=== PATIENT | female | born 1965 | race Caucasian/White ===

== ENCOUNTER 2019-01-08 12:37 | Emergency (ER) | payer OTHER, SELFPAY ==
--- NOTE | 2019-01-08 12:42 | W.ED.GENAD ---
Discharge Plan Disposition Patient Disposition: HOME Condition: Good Discharge Details Chief Complaint: GenMedical Clinical Impression: Sinusitis Primary Care Provider: Arabella Hernandez ED Provider: Janneth Pruett Home Meds and New Rx's Prescriptions: New amoxicillin-pot clavulanate [Augmentin] 875-125 mg tablet 1 tab PO BID Qty: 14 RF: 0 Continued omega-3 fatty acids 1,000 MG capsule 1,000 mg PO EVERY OTHER DAY RF: 0 ascorbic acid (vitamin C) 500 MG tablet 500 mg PO EVERY OTHER DAY RF: 0 vitamin E mixed 400 UNIT tablet 400 unit PO EVERY OTHER DAY RF: 0 CALCIUM 600 + D TABLET 1 EACH tablet 1 ea PO EVERY OTHER DAY RF: 0 benzonatate [Tessalon Perles] 100 MG capsule 100 - 200 mg PO tid prn Qty: 30 RF: 0 Discharge Instructions Instructions: Sinusitis (ED) Additional Instructions: Encourage hydration. Tylenol and ibuprofen as needed for discomfort. Please take the Augmentin as prescribed for sinus infection. Please follow-up with primary care if not improving in 1 week. If you develop difficulty breathing or shortness of breath or other new/worsening symptoms please seek care urgently once again. Referrals: Arabella Hernandez, [employer] [Primary Care Provider] - Discharge Data Discharge Date/Time-TO BE ENTERED AT DEPARTURE: 01/08/19 13:08 Medical Decision Making Patient is a 53-year-old female with out significant past medical history presented with chief complaint of URI. She reports that symptoms have been over the past 2 weeks. Reports that maximal tenderness is in the left maxillary sinus. Has not had any fevers. On exam, she appears nontoxic. She does have pain with percussion of the left maxillary sinus. Lungs are clear. Normal posterior oropharynx. No palpable lymphadenopathy. Please feel the treatment is appropriate with antibiotics we will begin her on Augmentin. She was given return precautions. Advise follow-up with primary care in the next week if not improving. All of her questions and concerns were addressed she is in agreement this plan. HPI General Mode of arrival: ambulatory. Date/Time Provider Initiated Documentation: 01/08/19 12:42. Limitations to Documentation: no limitations. Information obtained by: patient and RN notes reviewed. HPI Narrative: Patient is a 53-year-old female presents today with chief complaint of URI x2 weeks. Reports that she has had waxing and waning symptoms of cough and sore throat. However, throughout the whole thing she has been having a left maxillary sinus pain. She denies any fevers or chills. Denies any recent travel. No recent antibiotics. Denies shortness of breath. Related Data Home Medications Medication Instructions Recorded Confirmed Calcium 600 + D Tablet 1 ea PO EVERY OTHER DAY 07/02/13 ascorbic acid (vitamin C) 500 mg PO EVERY OTHER DAY 07/02/13 omega-3 fatty acids 1,000 mg PO EVERY OTHER DAY 07/02/13 vitamin E mixed 400 unit PO EVERY OTHER DAY 07/02/13 benzonatate [Tessalon Perles] 100 - 200 mg PO tid prn #30 tab-cap 06/28/16 amoxicillin-pot clavulanate 1 tab PO BID #14 tab 01/08/19 [Augmentin] Previous Rx's Medication Instructions Recorded amoxicillin-pot clavulanate 1 tab PO BID #14 tab 01/08/19 [Augmentin] Allergies Allergy/AdvReac Type Severity Reaction Status Date / Time Tetracyclines Allergy Unknown Unverified 06/28/16 13:01 Review of Systems Constitutional Constitutional: Reports as per HPI, Denies chills, Denies fever(s) and Denies headache(s) Eyes Eyes: Reports as per HPI, Denies eye discharge and Denies irritation ENT Ears, Nose, Mouth, and Throat: Reports as per HPI and Denies headache(s) Cardiovascular Cardiovascular: Reports as per HPI, Denies chest pain, Denies dyspnea and Denies dyspnea on exertion Respiratory Respiratory: Reports as per HPI, Reports chest congestion, Reports cough, Denies hemoptysis, Denies excessive phlegm production, Denies pain on inspiration, Denies pain with cough, Denies dyspnea, Denies dyspnea on exertion, Denies stridor and Denies wheezing Gastrointestinal Gastrointestinal: Reports as per HPI, Denies abdominal pain, Denies change in bowel habits, Denies nausea and Denies vomiting Integumentary/Breasts Skin/Breast: Reports as per HPI and Denies rash Neurologic Neurologic: Reports as per HPI and Denies headache(s) Allergic/Immunologic Allergic/Immunologic: Denies wheezing [facility] Social History Smoking/Tobacco Use Status: Former Tobacco Use Alcohol Intake: current Alcohol Intake frequency: a few times a week Alcohol type: wine Drug use: Never Substance use type: does not use Do you feel safe at home: Yes Do you feel safe in your relationship?: Yes Exam Const General: cooperative, healthy appearing, comfortable, no acute distress, well developed and well groomed Nutritional Appearance: average body habitus and well nourished Orientation: alert and awake [facility] Head: normal to inspection, normocephalic and atraumatic Ears: hearing grossly normal bilaterally, external ears normal and TM's normal bilaterally General nose exam: external nose normal and nares normal Face and sinus: normal facial exam, face symmetric and sinus tenderness maxillary (left) Mouth: oral mucosae normal, lip normal, tongue normal, oropharynx normal and moist mucous membranes Teeth and gingiva: dentition normal Throat: posterior oropharynx normal, tonsils normal and uvula midline Eyes General: appearance normal, both eyes and all related structures Neck Neck: normal visual inspection, full ROM, no lymphadenopathy and no meningeal signs Resp Effort & Inspection: normal respiratory effort, able to speak in complete sentences and no respiratory distress Auscultation: clear to auscultation bilaterally, no rales, no rhonchi and no wheezes Cardio Rate: regular rate Rhythm: regular rhythm Heart Sounds: S1 normal and S2 normal Skin General skin exam: no rashes or lesions noted Neuro General: alert and awake Cognition: normal cognition Speech: speech normal Gait: normal gait Psych Appearance: grossly normal and well kempt Mental Status: mental status grossly normal Speech and Movement: speech and movement normal
[2019-01-08 12:44] VITALS: BP 137/75; PULSE 71; RESP 18; TEMP 35.9; O2SAT 99
[2019-01-08 12:49] VITALS: RESP 18
== END 2019-01-08 13:08 | disposition home or self-care (01) ==
PROVIDERS: Emergency Provider Physician Assistant
DX: J01.90 Acute sinusitis, unspecified (principal)
CPT/HCPCS: 99283